=== PATIENT | male | born 1975 | race Caucasian/White ===

== ENCOUNTER 2017-07-19 11:58 | Emergency (ER) ==
[2017-07-19 12:04] VITALS: BP 150/97; TEMP 98.6; BMI 50.3
[2017-07-19] MEDS ORDERED: BOOSTRIX IM ONE (13:41)
[2017-07-19] MEDS ORDERED: XYLOCAINE MPF 1% INJ ONE (14:00)
[2017-07-19] MEDS ORDERED: LIDOCAINE HCL 1% SDV ONE (14:04)
[2017-07-19] MEDS: LIDOCAINE HCL 1% SDV ONE ×2 (14:07→14:10)
--- NOTE | 2017-07-19 15:11 | ED.PDOC ---
General ED Provider: Dr. DC RIVER Chief Complaint: Laceration Stated Complaint: Laceration Lt Thumb. Was using a wood chissel when he struck his Lt Thumb Middle phalynx. Moderate bleeding but controlled with pressure. Unsure of last tetanus Time Seen by Physician: 12:30 Mode of Arrival: Walk-In Information Source: Patient Exam Limitations: No limitations Nursing and Triage Documentation Reviewed and Agree: Yes Reviewed sepsis parameters & appropriate labs ordered?: No System Inflammatory Response Syndrome: Not Applicable Sepsis Protocol: For patient's 13 years and over: Temp is 96.8 and below OR 101 and greater Pulse >90 BPM Resp >20/minute Acutely Altered Mental Status Are patient's symptoms suggestive of a new infection, such as: -Pneumonia -Skin, Soft Tissue -Endocarditis -UTI -Bone, Joint Infection -Implantable Device -Acute Abdominal Infection -Wound Infection -Meningitis -Blood Stream Catheter Infection -Unknown System Inflammatory Response Syndrome: Not Applicable Trauma/Injury Complaint Exam - Trauma Complaint/Exam Location of Pain or Injury: Reports: LUE (First Phalynx, dorsal aspect, mid phalnyx) Mechanism of Injury: Reports: Incised (with wood chissel) Onset/Duration: This Morning Symptoms Are: Still present Timing of Treatment: Immediate Initial Severity: Moderate Current Severity: Moderate Character: Reports: Sharp, Stabbing Aggravating: Reports: Movement Alleviating: Reports: Rest Associated Signs and Symptoms: Reports: Bleeding Related History: Denies: Similar episode, Alcohol abuse, Anticoagulants, Occupational injury Related Surgical History: Reports: None Immobilization Removed Post Exam: Yes Compartment Syndrome Risk Factors: Absent: Pain, Paralysis, Pallor, Pulselessness, Paresthesias Skin Findings: Present: Laceration Differential Diagnoses: Laceration Review of Systems - Review Of Systems Constitutional: Reports: No symptoms Eyes: Reports: No symptoms Ears, Nose, Mouth, Throat: Reports: No symptoms Respiratory: Reports: No symptoms Cardiac: Reports: No symptoms GI: Reports: No symptoms : Reports: No symptoms Musculoskeletal: Reports: No symptoms Skin: Reports: Other (laceraton lt thumb) Neurological: Reports: No symptoms Endocrine: Reports: No symptoms Hematologic/Lymphatic: Reports: No symptoms All Other Systems: Reviewed and Negative Past Medical History - Past Medical History Previously Healthy: Yes Endocrine: Reports: None Cardiovascular: Reports: None Respiratory: Reports: None Hematological: Reports: None Gastrointestinal: Reports: None Genitourinary: Reports: None Neuro/Psych: Reports: None Musculoskeletal: Reports: None Cancer: Reports: None - Surgical History General Surgical History: Reports: None - Family History Family History: Reports: None - Social History Smoking Status: Current every day smoker, Heavy tobacco smoker Hx Substance Use: No Alcohol Screening: None - Immunizations Tetanus Shot up to Date: No Physical Exam - Physical Exam Appearance: Well-appearing, Obese Ill-appearing: Mild Pain Distress: Moderate Eyes: WARD, EOMI, Conjunctiva clear ENT: Ears normal, Nose normal Neck: Nonsupple Respiratory: Airway patent, Breath sounds clear Cardiovascular: RRR, Pulses normal GI/: Soft, Nontender, No masses Musculoskeletal: Normal strength, ROM intact, No edema Skin: Warm (laceration lt thumb) Neurological: Sensation intact, Motor intact, Alert Psychiatric: Affect appropriate, Mood appropriate Procedures - Laceration/Wound Repair No standard instances Wound Length (cm): 2.5 cm Wound Width: 5 mm Wound Depth: 3 mm Wound Explored: Clean Wound Irrigated: Yes Wound Prep: Saline, Hibiclens, Betadine Anesthesia: Lidocaine (4cc local infiltration ) Wound Repaired With: Sutures Suture Size and Type: 4-0 Number of Sutures: 4 Layer Closure?: No Lt Thumb Wound Description: Linear Wound Length (cm): 2.5 Wound Width: 2mm Wound Depth: 2-3mm Wound Explored: Clean Wound Irrigated: Yes Wound Prep: Saline, Hibiclens, Betadine Anesthesia: Lidocaine Wound Repaired With: Sutures Suture Size and Type: 4-0 Nylon Number of Sutures: 4 Layer Closure?: No Splint Applied?: No (sterile dressing) Critical Care Note - Critical Care Note Total Time (mins): 30 Course - Course Orders, Labs, Meds: Orders Category Date Time Status Diphth,Gianluca(Acell),Tet Vac [Boostrix] MEDS 07/19/17 13:41 Discontinued 0.5 ml IM .ONCE ONE Lidocaine HCl/Pf [Lidocaine HCl 1% Sdv] MEDS 07/19/17 14:02 Discontinued 5 ml .ROUTE .STK-MED ONE Lidocaine HCl/Pf [Lidocaine HCl 1% Sdv] MEDS 07/19/17 14:04 Discontinued 5 ml .ROUTE .STK-MED ONE Lidocaine HCl/Pf [Xylocaine-Mpf 1% Ampul] MEDS 07/19/17 14:00 Discontinued 5 ml INJ ONCE ONE THUMB, LEFT Stat RADS 07/19/17 14:40 Completed Medications Discontinued Medications Generic Name Dose Route Start Last Admin Trade Name Rosita PRN Reason Stop Dose Admin Diphtheria/Pertussis/Tetanus Vacc 0.5 ml 07/19/17 13:41 07/19/17 14:09 Boostrix IM 07/19/17 13:42 0.5 ml .ONCE ONE Administration Lidocaine HCl 5 ml 07/19/17 14:00 07/19/17 14:10 Xylocaine-Mpf 1% Ampul INJ 07/19/17 14:01 5 ml ONCE ONE Administration Vital Signs: Temp Pulse Resp BP Pulse Ox 07/19/17 11:59 98.6 F 88 20 150/97 H 93 L Departure - Departure Time of Disposition: 16:00 Disposition: HOME SELF-CARE Discharge Problem: Laceration of thumb without complication Condition: Good Pt referred to PMD for follow-up: Yes (1 week ) IPMP verified?: No Additional Instructions: Laceration care instructions Has home meds for use as needed for pain Follow up in ER if conditon worsens See PCP in 1 week fo suture removal Prescriptions: Cephalexin [Keflex] 500 mg PO BID #14 capsule Allergies/Adverse Reactions: Allergies No Known Allergies Allergy (Verified 07/19/17 12:05) Home Medications: Ambulatory Orders Cephalexin [Keflex] 500 mg PO BID #14 capsule 07/19/17 Disposition Discussed With: Patient
--- NOTE | 2017-07-19 15:35 | DI ---
Exam: Three x-rays of the left thumb. Comparison: None available. Reason for exam: Laceration. FINDINGS: No acute fracture or malalignment. The joint spaces are well maintained. No unexplained c alcific soft tissue density or radiopaque retained foreign body. Impression: No acute fracture or dislocation in the left thumb
== END 2017-07-19 15:55 | disposition home or self-care (01) ==
LOC: ED 11:58
DX: S61.012A Laceration without foreign body of left thumb without damage to nail, initial encounter (principal); F17.210 Nicotine dependence, cigarettes, uncomplicated; W22.8XXA Striking against or struck by other objects, initial encounter
CPT/HCPCS: 90471; 90715; 99283

== ENCOUNTER 2017-12-01 08:30 | Emergency (ER) ==
[2017-12-01 08:42] VITALS: BP 151/85; TEMP 98.6; BMI 48.8
--- NOTE | 2017-12-01 08:51 | ED.PDOC ---
General ED Provider: Dr. JOSE GODINEZ Chief Complaint: Ankle Pain/Injury Stated Complaint: ankle pain and syncope Time Seen by Physician: 08:33 (may preset at all times ) Mode of Arrival: Wheelchair Information Source: Patient Exam Limitations: No limitations Nursing and Triage Documentation Reviewed and Agree: Yes Does patient meet sepsis criteria?: No System Inflammatory Response Syndrome: Not Applicable Sepsis Protocol: For patient's 13 years and over: Temp is 96.8 and below OR 101 and greater Pulse >90 BPM Resp >20/minute Acutely Altered Mental Status Are patient's symptoms suggestive of a new infection, such as: -Pneumonia -Skin, Soft Tissue -Endocarditis -UTI -Bone, Joint Infection -Implantable Device -Acute Abdominal Infection -Wound Infection -Meningitis -Blood Stream Catheter Infection -Unknown Neurological Complaint Exam - Syncope/Near Syncope Complaint/Exam Onset/Duration: syncope last night 10 pm Symptoms Are: Resolved Number of Episodes: 1 Frequency of Episodes: 1 Episodes Witnessed: No Loss of Consciousness: No (blacked out said the pt) Activity at Onset: With exertion (walking down stairs) Aggravating: Position change (standing up to go to store blacked out said his son BRENNAN JEFFREY) Alleviating: Reports: None Associated Signs and Symptoms: Denies: Pain, Decreased oral intake, Vomiting, Diarrhea, GI blood loss, Short of air, Chest pain, Palpitations, Diaphoresis, Lightheadedness, Dizziness, Weakness, AMS, Numbness, Headache, Seizure, Remote head trauma, Recent head trauma Related History: Similar episode (ONCE A FEW YEARS BACK) Cardiac Risk Factors: Reports: Hypertension, Smoking (HTN OFF MEDS FOR YEARS ( LAST CARE WAS OBTAINED [facility]) SMOKES 1 PK/DAY). Denies: Diabetes, Elevated lipids, CHF, Prior [place], CAD GI Bleed Risk Factors: Denies: ETOH abuse, Liver Disease, Esophageal varices, Hemorrhoid, Coumadin use, Pradaxa use, Plavix use, NSAID use, Aspirin use Dysrhythmia Risk Factors: Reports: None Related Surgical History: Reports: None JVD Present: No Carotid Bruit Present: No Glascow Coma Scale (see protocol): 15 Nystagmus Present: No Gag Reflex Present: Yes Meningeal Signs Positive: No Focal Weakness: Present: None Focal Sensory Loss: Present: None Gait: Normal [id number]: Normal Findings Babinski Sign: Negative Right, Negative Left Differential Diagnoses: CAD, Metabolic Reaction Quality Indicators for Cardiac Chest Pain: EKG in 10min. Quality Indicator For Non-Traumatic Chest Pain/Syncope: EKG Performed Quality Indicators for AMI: EKG in 10min. Review of Systems - Review Of Systems Constitutional: Reports: No symptoms Eyes: Reports: No symptoms Ears, Nose, Mouth, Throat: Reports: No symptoms Respiratory: Reports: No symptoms Cardiac: Reports: No symptoms GI: Reports: No symptoms : Reports: No symptoms Musculoskeletal: Reports: Other (RIGHT ANKLE AND FOOT PAIN) Skin: Reports: No symptoms Neurological: Reports: No symptoms Endocrine: Reports: No symptoms Hematologic/Lymphatic: Reports: No symptoms All Other Systems: Reviewed and Negative Past Medical History - Past Medical History Previously Healthy: Yes Endocrine: Reports: None Cardiovascular: Reports: None Respiratory: Reports: None Hematological: Reports: None Gastrointestinal: Reports: None Genitourinary: Reports: None Neuro/Psych: Reports: None Musculoskeletal: Reports: None Cancer: Reports: None - Surgical History General Surgical History: Reports: None - Family History Family History: Reports: None - Social History Smoking Status: Current every day smoker, Heavy tobacco smoker Hx Substance Use: No Alcohol Screening: None Physical Exam - Physical Exam Appearance: Well-appearing, No pain distress, Well-nourished Eyes: WARD, EOMI, Conjunctiva clear ENT: Ears normal, Nose normal, Oropharynx normal Respiratory: Airway patent, Breath sounds clear, Breath sounds equal, Respirations nonlabored Cardiovascular: RRR, Pulses normal, No rub, No murmur GI/: Soft, Nontender, No masses, Bowel sounds normal, No Organomegaly Musculoskeletal: Normal strength, ROM intact, No edema, No calf tenderness Skin: Warm, Dry, Normal color Neurological: Sensation intact, Motor intact, Reflexes intact, Cranial nerves intact, Alert, Oriented Psychiatric: Affect appropriate, Mood appropriate Critical Care Note - Critical Care Note Total Time (mins): 0 Course - Course Hematology/Chemistry: 12/01/17 08:53 12/01/17 08:53 Orders, Labs, Meds: Lab Review 12/01/17 12/01/17 12/01/17 08:45 08:53 08:53 WBC 9.50 RBC 4.96 Hgb 15.2 Hct 45.4 MCV 91.5 MCH 30.6 MCHC 33.5 RDW Coeff of Mandy 13.1 Plt Count 189 Immature Gran % (Auto) 0.4 Neut % (Auto) 59.6 Lymph % (Auto) 29.7 [place] % (Auto) 7.8 Eos % (Auto) 2.1 Baso % (Auto) 0.4 Immature Gran # (Auto) 0.0 Neut # (Auto) 5.7 Lymph # (Auto) 2.8 [place] # (Auto) 0.7 Eos # (Auto) 0.2 Baso # (Auto) 0.0 D-Dimer (Manual) Puncture Site Rr O2 Saturation 92.0 L ABG pH 7.392 ABG pCO2 40.3 ABG pO2 65.0 L ABG HCO3 24.5 ABG Total CO2 26 ABG Base Excess 0 Brennan Test + FiO2 % 21.0 Sodium 139 Potassium 3.7 Chloride 106 Carbon Dioxide 23 Anion Gap 13.7 BUN 10 Creatinine 1.02 Estimated GFR (MDRD) 80.00 BUN/Creatinine Ratio 9.80 Glucose 145 H Calcium 8.9 Total Bilirubin 0.4 AST 11 L ALT 20 Alkaline Phosphatase 82 Total Creatine Kinase 106 Troponin I < 0.0100 B-Natriuretic Peptide Total Protein 7.0 Albumin 3.3 L Globulin 3.7 Albumin/Globulin Ratio 0.89 TSH 1.633 Free T4 0.98 Urine Color Urine Clarity Urine pH Ur Specific [place] Urine Protein Urine Glucose (UA) Urine Ketones Urine Blood Urine Nitrite Urine Bilirubin Urine Urobilinogen Ur Leukocyte Esterase Urine Microscopic RBC Ur Squamous Epith Cells Urine Opiates Screen Ur Oxycodone Screen Urine Methadone Screen Ur Propoxyphene Screen Ur Barbiturates Screen U Tricyclic Antidepress Ur Phencyclidine Scrn Ur Amphetamine Screen U Methamphetamines Scrn U Benzodiazepines Scrn Urine Cocaine Screen U Cannabinoids Screen 12/01/17 12/01/17 12/01/17 08:53 09:10 09:45 WBC RBC Hgb Hct MCV MCH MCHC RDW Coeff of Mandy Plt Count Immature Gran % (Auto) Neut % (Auto) Lymph % (Auto) [place] % (Auto) Eos % (Auto) Baso % (Auto) Immature Gran # (Auto) Neut # (Auto) Lymph # (Auto) [place] # (Auto) Eos # (Auto) Baso # (Auto) D-Dimer (Manual) 441.93 Puncture Site O2 Saturation ABG pH ABG pCO2 ABG pO2 ABG HCO3 ABG Total CO2 ABG Base Excess Brennan Test FiO2 % Sodium Potassium Chloride Carbon Dioxide Anion Gap BUN Creatinine Estimated GFR (MDRD) BUN/Creatinine Ratio Glucose Calcium Total Bilirubin AST ALT Alkaline Phosphatase Total Creatine Kinase Troponin I B-Natriuretic Peptide < 10 Total Protein Albumin Globulin Albumin/Globulin Ratio TSH Free T4 Urine Color Yellow Urine Clarity Clear Urine pH 5.5 Ur Specific [place] 1.020 Urine Protein Negative Urine Glucose (UA) Negative Urine Ketones Negative Urine Blood Trace-intact Urine Nitrite Negative Urine Bilirubin Negative Urine Urobilinogen 0.2 Ur Leukocyte Esterase Negative Urine Microscopic RBC 5-10 Ur Squamous Epith Cells 2-5 Urine Opiates Screen Ur Oxycodone Screen Urine Methadone Screen Ur Propoxyphene Screen Ur Barbiturates Screen U Tricyclic Antidepress Ur Phencyclidine Scrn Ur Amphetamine Screen U Methamphetamines Scrn U Benzodiazepines Scrn Urine Cocaine Screen U Cannabinoids Screen 12/01/17 10:32 WBC RBC Hgb Hct MCV MCH MCHC RDW Coeff of Mandy Plt Count Immature Gran % (Auto) Neut % (Auto) Lymph % (Auto) [place] % (Auto) Eos % (Auto) Baso % (Auto) Immature Gran # (Auto) Neut # (Auto) Lymph # (Auto) [place] # (Auto) Eos # (Auto) Baso # (Auto) D-Dimer (Manual) Puncture Site O2 Saturation ABG pH ABG pCO2 ABG pO2 ABG HCO3 ABG Total CO2 ABG Base Excess Brennan Test FiO2 % Sodium Potassium Chloride Carbon Dioxide Anion Gap BUN Creatinine Estimated GFR (MDRD) BUN/Creatinine Ratio Glucose Calcium Total Bilirubin AST ALT Alkaline Phosphatase Total Creatine Kinase Troponin I B-Natriuretic Peptide Total Protein Albumin Globulin Albumin/Globulin Ratio TSH Free T4 Urine Color Urine Clarity Urine pH Ur Specific [place] Urine Protein Urine Glucose (UA) Urine Ketones Urine Blood Urine Nitrite Urine Bilirubin Urine Urobilinogen Ur Leukocyte Esterase Urine Microscopic RBC Ur Squamous Epith Cells Urine Opiates Screen Negative Ur Oxycodone Screen Negative Urine Methadone Screen Negative Ur Propoxyphene Screen Negative Ur Barbiturates Screen Negative U Tricyclic Antidepress Negative Ur Phencyclidine Scrn Negative Ur Amphetamine Screen Negative U Methamphetamines Scrn Negative U Benzodiazepines Scrn Negative Urine Cocaine Screen Negative U Cannabinoids Screen Negative Orders Category Date Time Status ABG DRAW REQUEST Stat CARDIO 12/01/17 08:45 Completed EKG-(ED ONLY) Stat CARDIO 12/01/17 08:44 Completed ED IV/MEDIPORT/POWERPORT .ONCE EMERGENCY 12/01/17 08:44 Active ABG Stat LAB 12/01/17 08:45 Completed B-TYPE NATRIURETIC PEPTIDE Stat LAB 12/01/17 09:10 Completed BLOOD CULTURE (ED ONLY) Stat LAB 12/01/17 09:10 Received CBC W/ AUTO DIFF Stat LAB 12/01/17 08:53 Completed COMPREHENSIVE METABOLIC PANEL Stat LAB 12/01/17 08:53 Completed CREATINE KINASE Stat LAB 12/01/17 08:53 Completed D-DIMER Stat LAB 12/01/17 08:53 Completed FREE T4 (FREE THYROXINE) Stat LAB 12/01/17 08:53 Completed THYROID STIMULATING HORMONE Stat LAB 12/01/17 08:53 Completed TROPONIN I Stat LAB 12/01/17 08:53 Completed URINALYSIS C & S IF INDICATED Stat LAB 12/01/17 09:45 Completed URINE DRUG SCREEN (RAPID FOR ED) [DRUG SCREEN, URINE, LAB 12/01/17 10:32 Completed RAPID] Stat 0.9 % Sodium Chloride [Saline Flush] MEDS 12/01/17 08:44 Active 1 syr IVF PRN PRN ANKLE, RIGHT MIN 3 VIEWS Stat RADS 12/01/17 08:47 Completed CHEST, 2 VIEWS PA & LAT Stat RADS 12/01/17 08:[address] HEAD W/O CONTRAST Stat RADS 12/01/17 08:47 Completed FOOT, RIGHT 3 VIEWS Stat RADS 12/01/17 08:47 Completed Medications Generic Name Dose Route Start Last Admin Trade Name Freq PRN Reason Stop Dose Admin Sodium Chloride 1 syr 12/01/17 08:44 Saline Flush IVF PRN PRN To flush IV Vital Signs: Temp Pulse Resp BP Pulse Ox 12/01/17 08:31 98.6 F 81 20 151/85 H 93 L Departure - Departure Time of Disposition: 10:40 (left ama discussed admissiom may was present pt refused ) Disposition: AMA Discharge Problem: Ankle pain Syncope Qualifiers: Syncope type: unspecified Qualified Code(s): R55 - Syncope and collapse Instructions: Syncope (ED), Ankle Sprain (ED), Ankle Sprain (DC) Condition: Good Pt referred to PMD for follow-up: Yes IPMP verified?: No Additional Instructions: Please call your Family Physician as soon as possible to schedule a follow-up appointment. Allergies/Adverse Reactions: Allergies No Known Allergies Allergy (Verified 12/01/17 08:38) Home Medications: Ambulatory Orders 1 [No Reported Medications] 12/01/17 Disposition Discussed With: Patient, Family
--- NOTE | 2017-12-01 09:54 | DI ---
EXAM: Three views of the right ankle HISTORY: Pain post fall. COMPARISON: None FINDINGS: There is no displaced fracture or dislocation. There is minimal degenerative change. The soft tissues demonstrate mild swelling. The joint spaces maintained. Hind foot structures are manjula l. IMPRESSION: No acute abnormality of the right ankle.
--- NOTE | 2017-12-01 09:55 | DI ---
EXAM: PA and lateral views of the chest HISTORY: Cough. COMPARISON: None FINDINGS: The cardiomediastinal silhouette demonstrates mild prominence of the right hilum not well visualized on lateral view. There is no pneumothorax or pleural effusion. There is no consolidation , nodule or mass. The osseous structures demonstrate degenerative disease of the spine. IMPRESSION: 1. No acute consolidation. 2. Mild prominence of the right hilum may represent a prominent pulmonary artery versus lymphadenopa thy.
--- NOTE | 2017-12-01 09:56 | DI ---
EXAM: Radiographs, right foot HISTORY: Initial presentation for right foot trauma. COMPARISON: None available. TECHNIQUE: Three views. FINDINGS: Bone mineralization is normal. There is no fracture or dislocation. Benign cyst present in the base of the first proximal phalanx. Mild spurring seen at the first TMT, MTP and IP joints. Tiny calcaneal spurs present at the Achilles tendon insertion and plantar aponeurosis. No focal sof t tissue abnormality is seen. IMPRESSION: No fracture or dislocation.
--- NOTE | 2017-12-01 10:06 | CT ---
EXAM: CT head without contrast. HISTORY: Headache. COMPARISON: None available. TECHNIQUE: Multiple axial images of the brain were obtained from the skull base through the vertex w ithout intravenous contrast. Multiplanar reformats were provided. FINDINGS: There is no intracranial hemorrhage or extraaxial collection. The tovar-white differentiat ion is maintained without evidence for acute large vascular territory infarction. The cortical sulci and basal cisterns are well visualized. There is no hydrocephalus, mass effect, or midline shift. Mild maxillary, ethmoid and sphenoid sinus mucosal thickening noted with wall thickening in the right sphenoid sinus. Polypoid soft tissue in the left sphenoid sinus may be more localized mucosal thick ening or polyp or retention cyst. The mastoid air cells are clear. The calvarium is intact. IMPRESSION: 1. No acute intracranial abnormality. 2. Paranasal sinus mucosal disease.
== END 2017-12-01 11:10 | disposition left against medical advice (07) ==
LOC: ED 08:30
DX: M25.571 Pain in right ankle and joints of right foot (principal); R55 Syncope and collapse
CPT/HCPCS: 36415; 80053; 80306; 81001; 82550; 82803; 83880; 84439; 84443; 84484; 85025; 85379; 87040; 93005; 93010; 99284

== ENCOUNTER 2017-12-19 11:18 | Outpatient (CLI) ==
--- NOTE | 2017-12-19 13:11 | DI ---
EXAM: Three views of the right ankle. History: Right ankle trauma. Findings: No acute fracture or dislocation. No abnormal calcifications or radiopaque foreign bodies . Joint spaces are preserved. Impression: No acute osseous abnormality.
--- NOTE | 2017-12-19 13:22 | DI ---
EXAM: Three views of the right foot. History: Right foot trauma. Comparison: Right foot radiograph 12/01/2017 Findings / impression: There is a mildly displaced fracture of the medial navicular bone. No disloc ation.
== END 2017-12-19 11:19 | disposition home or self-care (01) ==
LOC: RAD 11:18
PROVIDERS: ATTEND Physician Assistant
DX: S99.911A Unspecified injury of right ankle, initial encounter (principal); I10 Essential (primary) hypertension
CPT/HCPCS: 93005; 93010

== ENCOUNTER 2017-12-23 08:36 | Outpatient (CLI) ==
--- NOTE | 2017-12-23 09:36 | CT ---
EXAM: CT of the right foot without contrast History: Right foot fracture, follow-up, right foot trauma Comparison: Right foot radiograph 12/19/2017. Technique: Multiplanar CT images through the right foot were obtained without the administration of I V contrast Findings: There is a mildly displaced fracture involving the medial navicular bone. No other fractu res are identified. No dislocation. Joint spaces are relatively preserved. No abnormal calcificati ons or radiopaque foreign bodies. Minimal enthesiopathy seen at the insertion of the Achilles tendon . Impression: Mildly displaced fracture of the medial navicular bone.
== END 2017-12-23 08:37 | disposition home or self-care (01) ==
LOC: RAD 08:36
PROVIDERS: ATTEND Podiatrist
DX: S92.251A Displaced fracture of navicular [scaphoid] of right foot, initial encounter for closed fracture (principal)

== ENCOUNTER 2018-01-13 06:48 | Outpatient (CLI) ==
[2018-01-13] MEDS ORDERED: DOBUTAMINE 250 ML IV ONE (07:19)
[2018-01-13] MEDS ORDERED: ATROPINE SULFATE PFS ONE (07:19)
--- NOTE | 2018-01-16 11:39 | ECHOSTRESS ---
Date of Exam: 01/13/18 Ordering Physician: KATHIE FUNES APRN Reason for Echo: ESSENTIAL HTN, CHEST PAIN, DOBUTAMINE STRESS--NO ISCHEMIA M-Mode Normal Adult Results LV Dimensions Normal Adult Results AoV Opening excursions >1.6 LVEDD-base- 3.5-5.8 Ao root dimensions 2.0-3.7 LVESD-base- 3.1-4.6 L. Atrium dimensions 1.9-3.8 Post. Wall thickness 0.8-1.1 IV septum (thickness) 0.7-1.2 Post. Wall excursion 0.72-1.3 Septal motion Systolic motion R. Ventricular cavity 1.5-2.0 LVEF 60% Paradoxical septal wall motion 2-D: NORMAL LEFT VENTRICULAR CONTRACTILITY--RESTING AND WITH DOBUTAMINE INFUSION M-MODE: MV: AV: TV: PV: CHAMBER SIZE: WALL MOTION: NORMAL LEFT VENTRICULAR CONTRACTILITY--RESTING AND WITH DOBUTAMINE INFUSION PERICARDIUM: INTERPRETATION: 1. NORMAL LEFT VENTRICULAR CONTRACTILITY--RESTING AND WITH DOBUTAMINE INFUSION MTDD
--- NOTE | 2018-01-16 13:41 | DOBSTECHO ---
Date of Test: 01/13/18 Ordering Physician: KATHIE FUNES APRN Reason for Examination: CHEST PAIN, ESSENTIAL HYPERTENSION Current Medications: METOPROLOL, SIMVASTATIN, ASA Height: 73" Weight: 385 LBS Target Heart Rate: 151 S-T Segment Stage Time HR BPM BP MMHG Rhythm +/- Elevation Depression Comments/ Symptoms Control Sitting 58 122/78 SR X NONE Dobutamine 250mg/D5W 5cmg/KG/mn 10cmg/KG/mn 3:00 68 130/66 SR X NONE 15cmg/KG/mn 2:00 78 140/60 SR X NONE 20cmg/KG/mn 2:00 84 SR X NONE 25cmg/KG/mn 2:00 99 132/58 SR X NONE 30cmg/KG/mn 2:00 105 148/50 SR X NONE 35cmg/KG/mn 2:00 112 138/60 SR X NONE 40cmg/KG/mn 5:15 133 140/60 SR X .25 ATROPINE X 2 8:00 MIN POST INFUSION z 99 130/68 14:00 MIN POST INFUSION z 89 116/78 SR X NO COMMENTS DURATION OF INFUSION 18:15 MAXIMUM HEART RATE REACHED 133 BPM 96% OXYGEN SATURATION ON ROOM AIR WITH DOBUTAMINE INFUSION Interpretation: 1. NO EVIDENCE OF ISCHEMIA BY ST-T WAVE (HEART RATE RESTING AT 58 BPM TO 133 BPM WITH DOBUTAMINE INFUSION) 2. NO CHEST PAIN OR DISCOMFORT 3. BLOOD PRESSURE RESPONSE: ADEQUATE 4. NO ARRHYTHMIAS NORMAL LEFT VENTRICULAR CONTRACTILITY--RESTING AND DURING DOBUTAMINE INFUSION MTDD
== END 2018-01-13 06:49 | disposition home or self-care (01) ==
LOC: CAR 06:48
PROVIDERS: ATTEND Physician Assistant
DX: I10 Essential (primary) hypertension (principal)

== ENCOUNTER 2018-01-25 08:22 | Outpatient (CLI) ==
--- NOTE | 2018-01-25 10:13 | CT ---
EXAM: CTA of the neck with and without contrast History: Abnormal carotid ultrasound with abnormal ratio of the right internal carotid artery Comparison: Carotid Doppler 01/05/2018 Technique: Multiplanar CT images through the soft tissue neck were obtained with and without the adm inistration of IV contrast. MIP images and 3-D reconstructions were also acquired. Findings: Orbits are intact. Visualized intracranial contents demonstrate no abnormality. Surround ing soft tissues are unremarkable. The visualized upper lungs are free of consolidation. No acute f racture or dislocation. Mild paranasal sinus mucosal thickening. Mastoid air cells are clear. No p revertebral soft tissue swelling. Epiglottis is not thickened. Submandibular glands and parotid gla nds are within normal limits. The bilateral subclavian arteries are patent without significant disease. Bilateral common carotid a rteries are patent without significant disease. The bilateral internal carotid arteries are patent w ithout significant disease. The bilateral vertebral arteries are patent without significant disease. No aneurysms are seen. Impression: 1. Normal arterial study of the neck. 2. Mild paranasal sinusitis.
== END 2018-01-25 08:23 | disposition home or self-care (01) ==
LOC: RAD 08:22
PROVIDERS: ATTEND Physician Assistant
DX: R93.8 Abnormal findings on diagnostic imaging of other specified body structures (principal)
CPT/HCPCS: 36415; 82565

== ENCOUNTER 2018-12-31 09:03 | Emergency (ER) ==
[2018-12-31 09:09] VITALS: BP 162/95; TEMP 98.9; BMI 49.4
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
== END 2018-12-31 09:31 | disposition home or self-care (01) ==
LOC: ED 09:03
DX: Z02.83 Encounter for blood-alcohol and blood-drug test (principal); V69.9XXA Occupant (driver) (passenger) of heavy transport vehicle injured in unspecified traffic accident, initial encounter; F17.210 Nicotine dependence, cigarettes, uncomplicated
CPT/HCPCS: 80306; 99282